=== PATIENT | female | born 1955 | race Caucasian/White ===

== ENCOUNTER 2024-11-04 05:56 | Day surgery (SDC) | payer MEDICARE, BC, SELFPAY ==
[2024-11-04] VITALS (8 sets, daily range): BP systolic 114–141; BP diastolic 72–88; BMI 21.9
[2024-11-04] MEDS: NORMOSOL-R/PLASMALYTE-A 1000 IV (06:28)
[2024-11-04] MEDS: CELEBREX 200 MG PO (06:28)
[2024-11-04] MEDS: TYLENOL 1000 MG PO (06:28)
[2024-11-04] MEDS: DEMEROL 12.5 MG IV (07:59)
[2024-11-04] MEDS: ROXICODONE 5 MG PO (08:50)
== END 2024-11-04 09:05 | disposition home or self-care (01) ==
LOC: SDS 05:56
PROVIDERS: ATTENDING PHYSICIAN Orthopaedic Surgery Hand Surgery
DX: M65.4 Radial styloid tenosynovitis [de Quervain] (principal); M65.941 Unspecified synovitis and tenosynovitis, right hand; M67.431 Ganglion, right wrist
CPT/HCPCS: 25000; 25112; 88304